=== PATIENT | male | born 1975 ===

== ENCOUNTER 2023-11-18 11:22 | Day surgery (SDC) | payer OTHER ==
[~2023-11-18] VITALS: Ht 175.3 cm; Wt 79.0 kg
[2023-11-18] MEDS ORDERED: COLCHICINE0.6 MG (12:42)
[2023-11-18] MEDS ORDERED: PANTOTHENIC AC500 MG (12:42)
[2023-11-18] MEDS ORDERED: Lactated Ringer's 1,000 ML IV ONE ×2 (13:33→13:37)
[2023-11-18] MEDS ORDERED: propofoL 50 ML IV ONE ×2 (13:37→14:14)
[2023-11-18] MEDS ORDERED: Lidocaine HCl/Pf 1% 5 ML VIAL ONE (13:37)
== END 2023-11-18 14:54 | disposition home or self-care (01) ==
LOC: ORSCSDS 11:22
PROVIDERS: Surgery
PROC: 0DBL8ZX Excision of Transverse Colon, Via Natural or Artificial Opening Endoscopic, Diagnostic (ICD-10-PCS; principal; 2023-11-18 13:30)
PROC: 0DBN8ZX Excision of Sigmoid Colon, Via Natural or Artificial Opening Endoscopic, Diagnostic (ICD-10-PCS; principal; 2023-11-18 13:30)
PROC: 0DBM8ZX Excision of Descending Colon, Via Natural or Artificial Opening Endoscopic, Diagnostic (ICD-10-PCS; principal; 2023-11-18 13:30)
DX: K92.1 Melena (principal); K64.1 Second degree hemorrhoids; D12.3 Benign neoplasm of transverse colon; D12.4 Benign neoplasm of descending colon; D12.5 Benign neoplasm of sigmoid colon; Z85.47 Personal history of malignant neoplasm of testis
CPT/HCPCS: 88305; J2001; J2704; J7120